=== PATIENT | male | born 1945 | race Caucasian/White ===

== ENCOUNTER 2017-02-17 15:08 | Emergency (ER) | payer MEDICARE, MEDICAID ==
--- NOTE | 2017-02-18 13:29 | ER ---
ADMIT: 02/17/2017 RM/LOC: ER [facility] MR#: [id number] [address] [facility] [place], [place] [address] IAN CUTLER [address] [address] Emergency Room Report SEX: M AGE: 71 : 1945 DATE: 02/17/2017 HISTORY OF PRESENT ILLNESS: This gentleman is a male, who presents to the emergency room stating that he hurts when he pees. This has been going on for 1 day, but he had longer issues that have been going on for 4 months. He says he has been treated with Cipro antibiotic straight for the last 3 months for his bladder problems and urology problems. He denies any fever, chills, nausea, or vomiting. He does have some pain in his mid abdomen and says that he is having problems urinating. His accompanies him, and she says she has never seen him or known him to have any urinary dribbling in the past as much as he does have now. 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 PHYSICAL EXAMINATION: VITAL SIGNS: Blood pressure 131/67 with a pulse of 73, respirations 16, O2 sats 97%, and temp is 96.9. GENERAL: The patient is mildly anxious on physical examination. LUNGS: He denies having any respiratory distress. CVS: Regular in rate and rhythm. ABDOMEN: Periumbilical and left lower quadrant abdominal pain. BACK: No CVA tenderness. SKIN: Good color and turgor. EXTREMITIES: Well perfused. No edema. NEUROLOGIC: Oriented x4. LABORATORY DATA: His labs show a glucose of 129 with a glomerular filtration of 84. Sodium and potassium are both normal. His urine within normal limits. CBC; white count is 6.0 with a hemoglobin of 14, and hematocrit is 41. CT scan shows diverticulosis, no renal stone, no appendix present, right kidney nephrectomy, no other issues present in the report. The patient was advised to the findings, and he was given a prescription for Ultram 50 mg 1 p.o. plus ADMIT: 02/17/2017 RM/LOC: ER [facility] MR#: [id number] [address] [address] [place], I[address] [place] [address] Emergency Room Report SEX: M AGE: 71 : 1945 1 tablet given in the ER. He is encouraged to follow up a diet that is helpful for diverticular disease. Increase liquids, fiber, eat salads, and MiraLAX daily. Follow up with Dr. Ricardo for urinary issues. verbalized understanding, and we will help him make an appointment with Urology. I did send him home with a prescription for Ultram. DIAGNOSES: 1. Constipation. 2. Abdominal pain. 3. Diverticulosis. 4. Dysuria. 5. Frequency. LAUREN Monae / Bernard Silva MD / modl JOB #: [id number] CC: Bernard Silva MD, Attending Physician Teja Ricardo MD, Family Physician
== END 2017-02-17 19:10 | disposition home or self-care (01) ==
LOC: ER 15:08
DX: K59.00 Constipation, unspecified (principal); K57.30 Diverticulosis of large intestine without perforation or abscess without bleeding; R30.0 Dysuria; R35.0 Frequency of micturition; Z86.73 Personal history of transient ischemic attack (TIA), and cerebral infarction without residual deficits; Z90.5 Acquired absence of kidney

== ENCOUNTER 2017-03-03 11:16 | Emergency (ER) | payer MEDICARE, MEDICAID ==
--- NOTE | 2017-03-08 13:43 | ER ---
ADMIT: 03/03/2017 RM/LOC: ER [facility] MR#: [id number] [id number] [facility] [address] [place], [place] [address] IAN CUTLER [address] [address] Emergency Room Report SEX: M AGE: 71 : 1945 DATE: 03/03/2017 ADDENDUM: CHIEF COMPLAINT: Knee pain. HISTORY OF PRESENT ILLNESS: This 71-year-old male, who has left knee pain that just developed in the last day. It is swollen, it is warm, but not erythemic. There is no injury to the knee. COURSE IN THE EMERGENCY ROOM: I am sending him home with prednisone for possible gout. I am not using Indocin due to him only having one kidney. Also sent him home with Ultram for pain. Told him to follow up with his primary care physician if his symptoms worsen. CLINICAL IMPRESSION: Nontraumatic left knee pain, possible gout. LAUREN Forrester / Martin Abernathy MD / [place] JOB #: [id number] CC: Martin Abernathy MD, Attending Physician Breana Zuniga MD, Family Physician
== END 2017-03-03 13:30 | disposition home or self-care (01) ==
LOC: ER 11:16
DX: M25.562 Pain in left knee (principal); Z86.73 Personal history of transient ischemic attack (TIA), and cerebral infarction without residual deficits